=== PATIENT | male | born 1950 | race Caucasian/White ===

== ENCOUNTER 2024-02-18 11:15 | Inpatient (IN) | payer OTHER ==
[~2024-02-18] VITALS: Ht 185.4 cm; Wt 119.3 kg
[~2024-02-18 11:15] MED LIST: AMBIEN10 MG PO; CIPRO750 MG PO; Colace 100MG PO; DOCUSATE SODIU100 MG PO; NEURONTIN PO; PERCOCET 5/3251 TAB PO
[2024-02-18] MEDS ORDERED: UROXATRAL10 MG (12:37)
[2024-02-18] MEDS ORDERED: VALSARTAN-HCTZ1 EACH (12:38)
[2024-02-18] MEDS ORDERED: TADALAFIL 5MG (12:38)
[2024-02-18] MEDS ORDERED: MONTELUKAST 10MG (12:39)
[2024-02-18] MEDS ORDERED: VASOFLEX HD CA1 EACH (12:39)
[2024-02-18] MEDS ORDERED: ALBUTEROL (12:39)
[2024-02-18] MEDS ORDERED: [UNRECOGNIZED DRUG - OTHER] (12:40)
[2024-02-18] MEDS ORDERED: FLUTIC (12:40)
[2024-02-18] MEDS ORDERED: VITAMIN E180 M1 (12:41)
[2024-02-18] MEDS ORDERED: CENTRUM (12:41)
[2024-02-18] MEDS ORDERED: VITAMIN D312.5 MCG/5 (12:41)
[2024-02-22] MEDS ORDERED: ENALAPRILAT DIHYDRATE 1.25 MG/ML VIAL IV PRN (10:15)
[2024-02-22] MEDS ORDERED: 0.9 % SODIUM CHLORIDE 1,000 ML IV SCH (10:15)
[2024-02-22] MEDS ORDERED: PROMETHAZINE HCL 50 MG/ML AMPUL IM PRN (10:15)
[2024-02-22] MEDS ORDERED: PERCOCET 5-3251 EACH PO (10:35)
[2024-02-22] MEDS ORDERED: MEDROLPACK PO (10:35)
[2024-02-22] MEDS ORDERED: COLACE100 MG PO (10:36)
[2024-02-22] MEDS ORDERED: AMOX-CLAV 875-1 EACH PO (10:36)
[2024-02-22] MEDS ORDERED: ONDANSETRON ODT8 MG PO (10:36)
[2024-02-22] MEDS ORDERED: NEURONTIN600 M1 PO (10:37)
[2024-02-22] MEDS ORDERED: GABAPENTIN100 M2 PO (10:37)
[2024-02-22] MEDS ORDERED: TRANEXAMIC ACID 100MG/1ML (1000MG) AMPUL IV ONE ×2 (12:00)
[2024-02-22] MEDS ORDERED: CEFAZOLIN SODIUM 1,000 MG VIAL IV SCH (12:15)
[2024-02-22] MEDS ORDERED: VANCOMYCIN HCL 1,000 MG VIAL IR ONE (12:15)
[2024-02-22] MEDS ORDERED: VANCOMYCIN HCL 1,000 MG VIAL IV ONE (12:15)
[2024-02-22] MEDS ORDERED: METHYLPREDNISOLONE ACETATE 80 MG/ML VIAL IU ONE ×2 (12:30)
[2024-02-22] MEDS ORDERED: METHYLPREDNISOLONE SOD SUCC 125 MG VIAL IV ONE ×3 (12:45)
[2024-02-22] MEDS ORDERED: MORPHINE SULFATE 4 MG,MORPHINE SULFATE 2 MG IV SCH (13:00)
[2024-02-22] MEDS ORDERED: DOCUSATE SODIUM 100MG CAP PO SCH (13:00)
[2024-02-22] MEDS ORDERED: MORPHINE SULFATE 4 MG/ML VIAL IV SCH (13:00)
[2024-02-22] MEDS ORDERED: MORPHINE SULFATE 4 MG/ML VIAL IV ONE ×2 (15:45→17:00)
[2024-02-22] MEDS ORDERED: MORPHINE SULFATE 2 MG/ML CARTRIDGE IV ONE (15:45)
[2024-02-22] MEDS ORDERED: CEFAZOLIN SODIUM 1,000 MG in 0.9 % SODIUM CHLORIDE 50 ML IV SCH (17:00)
[2024-02-22] MEDS ORDERED: METHYLPREDNISOLONE SOD SUCC 125 MG VIAL IV SCH (17:00)
[2024-02-22] MEDS ORDERED: FAMOtidine 20 MG TABLET PO SCH (17:00)
[2024-02-22] MEDS ORDERED: ALBUTEROL SULFATE 3 ML/2.5 MG AMPUL.NEB IH SCH (17:00)
[2024-02-22] MEDS ORDERED: MONTELUKAST SODIUM 10 MG TABLET PO SCH (17:00)
[2024-02-22 19:45] VITALS: BP 145/82; O2SAT 97
[2024-02-22] MEDS ORDERED: GABAPENTIN 800 MG TABLET PO SCH (21:00)
[2024-02-22] MEDS ORDERED: VANCOMYCIN HCL 1,000 MG VIAL IV SCH (21:00)
[2024-02-23] VITALS: BP 152/72; O2SAT 97
[2024-02-23] MEDS ORDERED: SODIUM CHLORIDE 0.45 % 1,000 ML IV SCH
[2024-02-23 04:00] VITALS: BP 153/71; O2SAT 97
[2024-02-23 05:17] LABS: HEMATOCRIT 36.7 % (39.0-48.0); HEMOGLOBIN 12.2 g/dL (13-16.00); MEAN CELL VOLUME 79.6 fL (80.0-100.00); MEAN CORPUSCULAR HEMOGLOBIN 26.5 pg (27.00-32.0); MEAN CORPUSCULAR HGB CONC 33.2 g/dl (32.0-36.0); PLATELET COUNT 177 K/uL (150-450); RED BLOOD COUNT 4.61 M/uL (4.00-6.00); RED CELL DISTRIBUTION WIDTH 17.4 % (11.5-14.5)
[2024-02-23 05:37] LABS: CALCIUM 8.7 mg/dL (8.5-10.1); CREATININE SERUM 1.07 mg/dL (0.70-1.30); GFR 68.13; POTASSIUM 4.42 mEq/L (3.5-5.1)
[2024-02-23] MEDS ORDERED: OxyCODONE HCL/APAP UD (PERCOCET) PO PRN (06:01)
[2024-02-23 08:45] VITALS: BP 129/72; O2SAT 96
[2024-02-23] MEDS ORDERED: TAMSULOSIN HCL 0.4 MG CAP PO SCH (09:00)
[2024-02-23] MEDS ORDERED: PATIENTS OWN MEDICATION (MEDICAMENTO EN PISO) PO SCH ×3 (09:00→21:00)
[2024-02-23 12:35] VITALS: BP 137/69; O2SAT 96
[2024-02-23 16:00] VITALS: BP 132/65; O2SAT 98
[2024-02-23 20:00] VITALS: BP 126/61; O2SAT 96
[2024-02-24 00:10] VITALS: BP 145/66; O2SAT 97
[2024-02-24 04:00] VITALS: BP 117/67; O2SAT 95
[2024-02-24 08:41] VITALS: BP 144/75; O2SAT 96
[2024-02-24 12:35] VITALS: BP 148/80; O2SAT 97
== END 2024-02-24 19:01 | disposition home or self-care (01) | DRG 455 ==
LOC: O/R 02-22 06:31 → PED 02-22 06:31 → SURG 02-22 11:15 → PED 02-22 16:05
PROVIDERS: ADMIT Orthopaedic Surgery Orthopaedic Surgery of the Spine; ATTEND Orthopaedic Surgery Orthopaedic Surgery of the Spine
PROC: 0SG0071 Fusion of Lumbar Vertebral Joint with Autologous Tissue Substitute, Posterior Approach, Posterior Column, Open Approach (ICD-10-PCS; 2024-02-22)
PROC: 0ST20ZZ Resection of Lumbar Vertebral Disc, Open Approach (ICD-10-PCS; 2024-02-22)
PROC: 0ST40ZZ Resection of Lumbosacral Disc, Open Approach (ICD-10-PCS; 2024-02-22)
PROC: XRGD0R7 Fusion of Lumbosacral Joint using Custom-Made Anatomically Designed Interbody Fusion Device, Open Approach, New Technology Group 7 (ICD-10-PCS; 2024-02-22)
PROC: 0SG3071 Fusion of Lumbosacral Joint with Autologous Tissue Substitute, Posterior Approach, Posterior Column, Open Approach (ICD-10-PCS; 2024-02-22)
PROC: 0QB30ZZ Excision of Left Pelvic Bone, Open Approach (ICD-10-PCS; 2024-02-22)
PROC: 07DR0ZZ Extraction of Iliac Bone Marrow, Open Approach (ICD-10-PCS; 2024-02-22)
PROC: XRGB0R7 Fusion of Lumbar Vertebral Joint using Custom-Made Anatomically Designed Interbody Fusion Device, Open Approach, New Technology Group 7 (ICD-10-PCS; principal; 2024-02-22 13:30)
DX: M48.062 Spinal stenosis, lumbar region with neurogenic claudication (principal); M51.36 Other intervertebral disc degeneration, lumbar region; M43.17 Spondylolisthesis, lumbosacral region; M54.17 Radiculopathy, lumbosacral region; M48.07 Spinal stenosis, lumbosacral region; G47.33 Obstructive sleep apnea (adult) (pediatric); I10 Essential (primary) hypertension